=== PATIENT | female | born 1950 | race Caucasian/White ===

== ENCOUNTER → 2018-09-18 | Outpatient (REF) | payer MEDICARE, OTHER ==
[~2018-09-18] MED LIST: BUSPIRONE5 MG PO; HYDROCHLOROT25 MG PO; LEVOTHYROXIN100 MC1 PO; MELOXICAM15 MG PO; OMEPRAZOLE20 MG PO; PROAIR HFA IN; VITAMIN D35000 UNIT PO; [UNRECOGNIZED DRUG - OTHER] PO; [UNRECOGNIZED DRUG - OTHER] PO
[2018-09-18 15:44] LABS: URINE BILIRUBIN - DIPSTICK NEGATIVE (NEGATIVE); URINE BLOOD DIPSTICK NEGATIVE (NEGATIVE); URINE COLOR YELLOW; URINE GLUCOSE - DIPSTICK NEGATIVE (NEGATIVE); URINE KETONE NEGATIVE (NEGATIVE); URINE NITRITE - DIPSTICK NEGATIVE (Negative); URINE PH 6.5 (4.5-8.0); URINE PROTEIN - DIPSTICK NEGATIVE (NEG-TRACE); URINE SPECIFIC GRAVITY <=1.005; URINE UROBILINOGEN - DIPSTICK 0.2 E.U./dL (0.2)
[2018-09-18 16:07] LABS: URINE LEUK ESTERASE MODERATE (NEGATIVE)
[2018-09-18 16:21] LABS: URINE SQUAMOUS EPITHELIAL CELL FEW EPI/hpf (0-FEW)
== END | disposition home or self-care (01) ==
LOC: LAB 15:33
PROVIDERS: ATTEND Nurse Practitioner Family
DX: M54.5 Low back pain (principal); R82.90 Unspecified abnormal findings in urine

== ENCOUNTER 2018-10-31 05:50 | Day surgery (SDC) | payer MEDICARE, OTHER ==
[2018-10-31 08:09] VITALS: BP 158/87
== END 2018-10-31 09:00 | disposition home or self-care (01) ==
LOC: ENDO 05:50
PROVIDERS: ATTEND Surgery
PROC: 0DBN8ZX Excision of Sigmoid Colon, Via Natural or Artificial Opening Endoscopic, Diagnostic (ICD-10-PCS; principal; 2018-10-31)
DX: Z12.11 Encounter for screening for malignant neoplasm of colon (principal); K57.30 Diverticulosis of large intestine without perforation or abscess without bleeding; K63.5 Polyp of colon; K64.4 Residual hemorrhoidal skin tags

== ENCOUNTER 2019-02-24 16:08 | Emergency (ER) | payer MEDICARE, OTHER ==
[~2019-02-24] VITALS: Ht 160 cm; Wt 90.0 kg
[2019-02-24 16:57] LABS: HEMOGLOBIN 14.8 g/dl (12.0-16.0); IMMATURE GRANULOCYTES 0.4 % (0.0-5.0); MEAN CELL VOLUME 95.7 fL CALC (80.0-100.0); MEAN CORPUSCULAR HGB 31.5 pG CALC (26.0-32.0); MEAN CORPUSCULAR HGB CONC 32.9 g/L CALC (32.0-36.0); NEUT# 7.83 thou/uL (2.00-7.15); RED BLOOD COUNT 4.7 mill/uL (4.20-5.60)
[2019-02-24 17:24] LABS: ALBUMIN 4.5 g/dL (3.2-5.0); ALKALINE PHOSPHATASE 69 u/l (38-126); ANION GAP 11 (6-22 (CALC)); BILIRUBIN, TOTAL 0.7 mg/dL (0.0-1.4); BUN 10 mg/dL (8-23); BUN/CREATININE RATIO 14 (12-20 (CALC)); CARBON DIOXIDE 32 mmol/l (22-30); CHLORIDE 101 mmol/l (95-108); CREATININE 0.7 mg/dL (0.5-1.0); GFR > 60 ML/MIN (>=60 (CALC)); GFR FOR AFR.AMER. > 60 ML/MIN (>=60 (CALC)); LIPASE 42 u/l (23-300); SGOT/AST 25 u/l (9-36); SODIUM 140 mmol/l (137-146); TOTAL PROTEIN 7.6 g/dL (6.3-8.2)
[2019-02-24 17:35] LABS: URINE BILIRUBIN - DIPSTICK NEGATIVE (NEGATIVE); URINE BLOOD DIPSTICK NEGATIVE (NEGATIVE); URINE COLOR YELLOW; URINE GLUCOSE - DIPSTICK NEGATIVE (NEGATIVE); URINE KETONE NEGATIVE (NEGATIVE); URINE LEUK ESTERASE NEGATIVE (NEGATIVE); URINE NITRITE - DIPSTICK NEGATIVE (Negative); URINE PROTEIN - DIPSTICK NEGATIVE (NEG-TRACE); URINE SPECIFIC GRAVITY 1.015; URINE UROBILINOGEN - DIPSTICK 0.2 E.U./dL (0.2)
[2019-02-24] MEDS ORDERED: CIPROFLOXACN500 MG PO (18:28)
[2019-02-24] MEDS ORDERED: METRONIDAZOL500 MG PO (18:28)
[2019-02-24] MEDS ORDERED: LORTAB 7.57.5 MG PO (18:28)
[2019-02-24 20:28] VITALS: BP 128/72
== END 2019-02-24 20:26 | disposition home or self-care (01) ==
LOC: ED 16:08
DX: K57.32 Diverticulitis of large intestine without perforation or abscess without bleeding (principal); I10 Essential (primary) hypertension; E03.9 Hypothyroidism, unspecified
CPT/HCPCS: Q9967

== ENCOUNTER 2019-02-27 11:27 | Inpatient (IN) | payer MEDICARE, OTHER ==
[~2019-02-27] VITALS: Ht 160 cm; Wt 91.0 kg
[~2019-02-27 11:27] MED LIST changes: +BENICAR20 MG PO; +CIPROFLOXACN500 MG PO; +LORTAB 7.57.5 MG PO; +METRONIDAZOL500 MG PO; -[UNRECOGNIZED DRUG - OTHER] PO
[2019-02-27 11:35] VITALS: BP 95/61
--- NOTE | 2019-02-27 11:35 | NUR ---
PT DIRECT ADMITTED FRO DR. BURLESON'S OFFICE VIA FOR DIVERTICULITIS. PT TRANSFERRED SELF TO STANDING SCALE, WT 91KG, THEN TO BED. STEADY GAIT NOTED. ESCORTED BY SPOUSE. PT AFEBRILE. T-98.8, B/P 94/61, HR- 64, SA02@96%RA. PT A&OX4, ABLE TO MAKE NEEDS KNOWN. ASSESSMENT COMPLETED. PT STATED PAIN WITH MOVEMENT "7" ON 1-10 SCALE, JUST SITTING, PAIN "0" ON 1-10 SCALE. PT RESTING IN BED, CALL LIGHT IN REACH. WILL MONITOR.
--- NOTE | 2019-02-27 11:50 | NUR ---
LAB AT BEDSIDE FOR BLOOD DRAW.
[2019-02-27 11:55] LABS: IMMATURE GRANULOCYTES 0.6 % (0.0-5.0); MEAN CORPUSCULAR HGB 31.6 pG CALC (26.0-32.0); MEAN CORPUSCULAR HGB CONC 32.9 g/L CALC (32.0-36.0); NEUT# 8.37 thou/uL (2.00-7.15); RED BLOOD COUNT 3.99 mill/uL (4.20-5.60)
[2019-02-27 11:58] LABS: HEMATOCRIT 38.3 % (37.0-47.0); HEMOGLOBIN 12.6 g/dl (12.0-16.0)
--- NOTE | 2019-02-27 12:00 | NUR ---
I LEFT A BRIEF MESSAGE WITH ALFRED HUFF AT [facility]801 TO CALL ME BACK VERIFYING THE CONSULTATION ORDERED. I CALLED AT 12:00PM.
[2019-02-27 12:15] LABS: CREATININE 1.1 mg/dL (0.5-1.0); POTASSIUM 3.8 mmol/l (3.5-5.1)
--- NOTE | 2019-02-27 12:19 | NUR ---
PLACED #22 IN RH WITH 3 ATTEMPTS PT TOLERATED WELL
--- NOTE | 2019-02-27 12:47 | NUR ---
DR. FELTON AT BEDSIDE FOR ASSESSMENT AND TO DISCUSS PLAN OF CARE. PT REMAIN NPO WITH ICE CHIPS ONLY FOR BOWEL REST.
--- NOTE | 2019-02-27 13:00 | NUR ---
PT OFF UNIT FOR CT OF ABDOMEN.
[2019-02-27 13:01] LABS: URINE BILIRUBIN - DIPSTICK NEGATIVE (NEGATIVE); URINE BLOOD DIPSTICK NEGATIVE (NEGATIVE); URINE COLOR YELLOW; URINE GLUCOSE - DIPSTICK NEGATIVE (NEGATIVE); URINE KETONE NEGATIVE (NEGATIVE); URINE LEUK ESTERASE SMALL (NEGATIVE); URINE NITRITE - DIPSTICK NEGATIVE (Negative); URINE PH 6.5 (4.5-8.0); URINE PROTEIN - DIPSTICK NEGATIVE (NEG-TRACE); URINE SPECIFIC GRAVITY <=1.005; URINE UROBILINOGEN - DIPSTICK 0.2 E.U./dL (0.2)
[2019-02-27 13:09] LABS: URINE BACTERIA FEW hpf; URINE SQUAMOUS EPITHELIAL CELL FEW EPI/hpf (0-FEW)
--- NOTE | 2019-02-27 13:30 | NUR ---
PT BACK TO ROOM.
[2019-02-27 16:00] VITALS: BP 87/56
--- NOTE | 2019-02-27 16:04 | NUR ---
BESSIE PABON AT BEDSIDE. PT REPORTS PAIN "5" ON 1-10 SCALE. MEDICATED ORDERED, PER REQUEST. CALL LIGHT IN REACH. WILL MONITOR.
--- NOTE | 2019-02-27 19:02 | NUR ---
REPORT FROM DEEDEE THOMSON. PT SITTING UP IN BED WATCHING TV. ALERT AND ORIENTED. NO APPARENT DISTRESS NOTED. PT DENIES ANY PAIN OR DISCOMFORT. PT CONTINUE WITH NPO FOR BOWEL REST. ICE CHIPS PROVIDED. IV ABT INFUSING WITHOUT DIFFICULTY. IV SITE APPEARS HEALTHY. SCREW MACHINE TENDER IN PLACE. DISCUSSED POC. PT VERBALIZED UNDERSTANDING. CALL LIGHT WITHIN REACH. WILL CONTINUE TO MONITOR.
[2019-02-27 19:29] VITALS: BP 94/59
--- NOTE | 2019-02-27 20:32 | NUR ---
PT MEDICATED FOR ABD PAIN 7-10 WITH PRN LORTAB. PT DENIES ANY OTHER WANTS OR NEEDS AT THIS TIME. CALL LIGHT WITHIN REACH. WILL CONTINUE TO MONITOR.
--- NOTE | 2019-02-27 23:15 | NUR ---
PT ASSISTED TO BSC. PT CRYING IN PAIN. MEDICATED WITH PRN IV MORPHINE AT THIS TIME. ASSISTED BACK TO BED. CALL LIGHT WITHIN REACH. WILL CONTINUE TO MONITOR.
[2019-02-28] VITALS (7 sets, daily range): BP systolic 84–110; BP diastolic 53–67
--- NOTE | 2019-02-28 03:26 | NUR ---
PT MEDICATED WITH PO APAP FOR TEMP. CALL LIGHT WITHIN REACH. WILL CONTINUE TO MONITOR.
[2019-02-28 05:14] LABS: HEMATOCRIT 39.3 % (37.0-47.0); HEMOGLOBIN 13.1 g/dl (12.0-16.0); IMMATURE GRANULOCYTES 0.3 % (0.0-5.0); MEAN CELL VOLUME 95.2 fL CALC (80.0-100.0); MEAN CORPUSCULAR HGB 31.7 pG CALC (26.0-32.0); MEAN CORPUSCULAR HGB CONC 33.3 g/L CALC (32.0-36.0); NEUT# 5.89 thou/uL (2.00-7.15); RED BLOOD COUNT 4.13 mill/uL (4.20-5.60); RED CELL DISTRI WIDTH 12.9 % (11.5-15.5)
[2019-02-28 05:41] LABS: ALKALINE PHOSPHATASE 88 u/l (38-126); ANION GAP 13 (6-22 (CALC)); BUN 11 mg/dL (8-23); BUN/CREATININE RATIO 14 (12-20 (CALC)); CARBON DIOXIDE 28 mmol/l (22-30); CHLORIDE 100 mmol/l (95-108); CREATININE 0.8 mg/dL (0.5-1.0); GFR > 60 ML/MIN (>=60 (CALC)); GFR FOR AFR.AMER. > 60 ML/MIN (>=60 (CALC)); POTASSIUM 3.4 mmol/l (3.5-5.1); SGOT/AST 34 u/l (9-36); SODIUM 137 mmol/l (137-146)
[2019-02-28 05:43] LABS: ALBUMIN 3.4 g/dL (3.2-5.0); BILIRUBIN, TOTAL 1.2 mg/dL (0.0-1.4)
--- NOTE | 2019-02-28 07:32 | NUR ---
REPORT RECEIVED FROM ALFRED VALERA. PT SITTING UPRIGHT IN BED. REPORTS RELIEF OF PAIN FROM RECENT MEDICATION. PLAN OF CARE DISCUSSED. REPORTING OF CONCERNS ENCOURAGED. CALL LIGHT REVIEWED AND IN REACH. NPO DIET REVIEWED. PT STATES UNDERSTANDING.
--- NOTE | 2019-02-28 11:37 | NUR ---
DR. CHAVEZ IN TO SEE PT. PLAN OF CARE UPDATED.
--- NOTE | 2019-02-28 15:15 | NUR ---
TEMP 101.2. TYLENOL PO ADMINISTERED. DR. CHAVEZ NOTIFIED. ORDER FOR BLOOD CX'S.
[2019-02-28] MEDS ORDERED: TIZANIDINE HCL2 M1 PO (16:02)
--- NOTE | 2019-02-28 19:00 | NUR ---
RECIEVED REPORT FROM DAY NURSE. PT RESTING IN BED WITH EYES CLOSED. WAKES TO VERBAL STIMULI. NO NEEDS A THIS TIME. CALL [place] IN REACH. WILL CONTINUE TO MONITOR.
--- NOTE | 2019-02-28 20:52 | NUR ---
PT IN BED WITH EYES CLOSED. PT HAS EAR PLUGS IN WAKES TO LOUD VERBAL STIMULI. ASSESMENT COMPLETED AT THIS TIME. PT C/O PAIN 5/10 TO LOWER ABD. MEDICATED PER ORDER. PT WISHES NOT TO BE DISTURBED TOO MUCH WILL HAVE AR PLUGS IN ALL NIGHT.CALL [place] IN REACH. WILL CONTINUE TO MONITOR.
--- NOTE | 2019-03-01 | NUR ---
PT RESTING IN BED WITH EYES CLOSED. NO S/S OF DISTRESS NOTED. CALL [place] IN REACH. WILL CONTINUE TO MONITOR.
[2019-03-01 00:05] VITALS: BP 97/55
--- NOTE | 2019-03-01 04:09 | NUR ---
MEDICATED PER ORDER FOR PAIN IN ABD 10/24. NO OTHER NEED AT THIS TIME CALL [place] IN REACH. WILL CONTINUE TO MONITOR.
[2019-03-01 04:59] VITALS: BP 105/69
[2019-03-01 05:56] LABS: HEMATOCRIT 37.9 % (37.0-47.0); MEAN CELL VOLUME 98.4 fL CALC (80.0-100.0); MEAN CORPUSCULAR HGB 31.2 pG CALC (26.0-32.0); MEAN CORPUSCULAR HGB CONC 31.7 g/L CALC (32.0-36.0); RED BLOOD COUNT 3.85 mill/uL (4.20-5.60); RED CELL DISTRI WIDTH 13.2 % (11.5-15.5)
--- NOTE | 2019-03-01 06:05 | NUR ---
ORAL CONTRAST STARTED PER ORDER
[2019-03-01 06:13] LABS: ANION GAP 13 (6-22 (CALC)); BUN 11 mg/dL (8-23); BUN/CREATININE RATIO 15 (12-20 (CALC)); CARBON DIOXIDE 27 mmol/l (22-30); CHLORIDE 104 mmol/l (95-108); CREATININE 0.7 mg/dL (0.5-1.0); GFR > 60 ML/MIN (>=60 (CALC)); GFR FOR AFR.AMER. > 60 ML/MIN (>=60 (CALC)); POTASSIUM 3.7 mmol/l (3.5-5.1); SODIUM 140 mmol/l (137-146)
[2019-03-01 08:20] VITALS: BP 113/64
--- NOTE | 2019-03-01 08:20 | NUR ---
ASSESSMENT IS COMPLTED: IV SITE IS FREE FROM REDNESS OR EDMEA. HR IS REG,PULSES ARE STRONG X4, ABD IS SOFT/BLOATED WITH ACTIVE BS. BREATH SOUNDS ARE CLEAR, BILATERALLY, CONTINUE TO OBSERVE AND MONITOR.
--- NOTE | 2019-03-01 09:00 | NUR ---
PT TRANSPORTED TO HAVE CT SCAN COMPLETED: RETURNED AT 0915. C/O IV SITE BURNING WHEN FLUSHED,
--- NOTE | 2019-03-01 10:00 | NUR ---
IV IN RH REMOVED AND NEW ONE PLACED IN RAC WITH #20 FROM CORIN THOMSON. PT TOLERATED WELL.
[2019-03-01 11:07] VITALS: BP 129/75
--- NOTE | 2019-03-01 11:52 | NUR ---
TRANSPORTING PT VIA STRETCHER WITH STAFF TO HAVE A CT ASPIRATION BX
--- NOTE | 2019-03-01 12:30 | NUR ---
PT IS RELAXING IN BED VISITING WITH FAMILY NO DISTRESS NOTED.
--- NOTE | 2019-03-01 12:45 | NUR ---
PT RETURNED WITH A MARICRUZ DRAIN ON HER LEFT SIDE., DRAINING SERO /BLOOD DRAINAGE. DR. FELTON AND JONAH RADIOLOGIST. IN TO VISIT WITH PT EXPLAINED THE PROBLEM AND PROCEDURE. VERBALIZED UNDERSTANDING
[2019-03-01 15:24] VITALS: BP 113/72
--- NOTE | 2019-03-01 16:20 | NUR ---
PT IS RELAXING IN BED WITH NO DISTRESS NOTED. IV SITE IS FREE FROM REDNESS OR EDEMA. CONTINUE TO OSBERVE AND MONITOR.
--- NOTE | 2019-03-01 18:19 | NUR ---
PT'S DRAIN ON LEFT SIDE INTACT HAS SOME BLOODY DRAINAGE NOTED.
--- NOTE | 2019-03-01 20:26 | NUR ---
PT MEDICATED FOR PAIN 5/10 IN LLQ OF ABD. DRAIN IS DRAINING TO BULB SUCTION/DRESSING APPEARS CDI. PT LOCX3, REPORTS MULTIPLE STOOL THIS DAY. NO S/O DISTRESS NOTED AT THIS TIME. CALL LIGHT IS ON TABLE W/IN REACH. CALL LIGHT AT SIDE.
[2019-03-01 20:46] VITALS: BP 105/72
--- NOTE | 2019-03-01 23:41 | NUR ---
IV ANTIBIOITIC THERAPY ADMINISTERED AND IVF REPLENISHED AT THIS TIME. JPDRAIN PATENT AND EMPTIED OF 35CC OF DARK BROWN DRAINAGE/SUCTION TO BULB RESET. PT ASSISTED TO BSC, PT REPORTS NEEDING TO SIT FOR AWHILE/CALL LIGHT PLACED W/IN REACH AND PT INSTRUCTED TO CALL WHEN READY TO GET UP.
[2019-03-02 00:25] VITALS: BP 143/87
--- NOTE | 2019-03-02 01:01 | NUR ---
PT MEDICATED FOR PAIN REPORTED 4/10 ON PAIN SCALE. JPDRAIN DRAINING TO BULB SUCTION. DRESSING TO LLA CDI. DENIES ANY OTHER NEEDS AT THIS TIME.
[2019-03-02 04:30] VITALS: BP 144/83
--- NOTE | 2019-03-02 04:30 | NUR ---
PT V/S ASSESSED, PT REQUESTING TO GET UP AND GET CLEANED UP, AIDE IN W/PT AT THIS TIME. NO S/O DISTRESS NOW.
[2019-03-02 04:57] LABS: HEMATOCRIT 41.1 % (37.0-47.0); HEMOGLOBIN 13.1 g/dl (12.0-16.0); MEAN CELL VOLUME 99.3 fL CALC (80.0-100.0); MEAN CORPUSCULAR HGB 31.6 pG CALC (26.0-32.0); MEAN CORPUSCULAR HGB CONC 31.9 g/L CALC (32.0-36.0); RED BLOOD COUNT 4.14 mill/uL (4.20-5.60); RED CELL DISTRI WIDTH 13.3 % (11.5-15.5)
[2019-03-02 05:19] LABS: ANION GAP 12 (6-22 (CALC)); BUN 7 mg/dL (8-23); BUN/CREATININE RATIO 9 (12-20 (CALC)); CARBON DIOXIDE 29 mmol/l (22-30); CHLORIDE 104 mmol/l (95-108); CREATININE 0.7 mg/dL (0.5-1.0); GFR > 60 ML/MIN (>=60 (CALC)); GFR FOR AFR.AMER. > 60 ML/MIN (>=60 (CALC)); POTASSIUM 3.7 mmol/l (3.5-5.1); SODIUM 142 mmol/l (137-146)
--- NOTE | 2019-03-02 05:49 | NUR ---
PT MEDICATED FOR PAIN 4/10 ON PAIN SCALE. DAVOL SUCTION BULB EMPTIED OF 30CC OF DARK BROWN DRAINAGE AND SET BACK TO BULB SUCTION. PT REPORTS WANTING MORE SLEEP, DENIES ANY OTHER NEEDS AT THIS TIME. CALL LIGHT IS AT SIDE.
[2019-03-02 08:00] VITALS: BP 121/61
--- NOTE | 2019-03-02 08:00 | NUR ---
ASSESSMENT IS COMPLTED: IV SITE IS FREE FROM REDNESS OR EDMEA. HR IS REG,PULSES ARE STRONG X4, ABD IS DISTENDED BUT SOFT, WITH ACTIVE BS. BREATH SOUNDS ARE CLEAR BILATERALLY. PT HAS A MARICRUZ DRAIN IN HER LEFT LOWER ABD DRAINAGE IS CRANBERRY COLORED FLUID. TELE MONITOR IN PLACE. CONTINUE TO OBSERVE AND MONITOR,
[2019-03-02 11:15] VITALS: BP 103/65
--- NOTE | 2019-03-02 12:30 | NUR ---
PT IS RELAXING IN BED , VISITED WITH DR CHAVEZ AND INQUIRED ABOUT WALKING ., WILL CHECK WITH DR. FELTON. CONTINUE TO OBSERVE AND MONITOR.
--- NOTE | 2019-03-02 13:04 | NUR ---
SPOKE WITH DR. FELTON RE: AMBULATION WITH SPOUSE AND LOVENOX., WAS APPROVED .
[2019-03-02 15:10] VITALS: BP 135/80
--- NOTE | 2019-03-02 16:15 | NUR ---
PT IS RELAXING IN BED WITH NO DISTRESS NOTED. IV SITE IS FREE FROM REDNESS OR EDEMA. IN TO VISIT WITH PT.
--- NOTE | 2019-03-02 18:27 | NUR ---
PT IS A LITTLE NAUSEOUS. GAVE MEDICATION
--- NOTE | 2019-03-02 19:15 | NUR ---
REPORT RECEIVED FROM DAY NURSE. DAY NURSE REPORTS THAT IVF HAVE BEEN DC'D BY PHYSICIAN AND IV SITE IS LEAKING/PT REPORTS BURNING AT SITE ALSO. WILL ATTEMPT NEW IV ACCESS AND ASSESS PT. PT DENIES ANY OTHER NEEDS AT THIS TIME AND HAS BEEN MEDIATED FOR PAIN PRIOR TO MY COMING ON.
[2019-03-02 20:05] VITALS: BP 126/63
--- NOTE | 2019-03-02 20:06 | NUR ---
PT MEDICATED FOR ANXIETY/ASKED TO BE MEDICATED PRIOR TO IV ACCESSED.
--- NOTE | 2019-03-02 20:50 | NUR ---
NEW IV SITE ACCESSED, PT TOLERATED WELL. PT ASSISTED TO RESTROOM. PT INSTRUCTED TO CALL WHEN FINISHED.
--- NOTE | 2019-03-03 00:19 | NUR ---
PT MEDICATED W/IV ANTIBIOTIC THERAPY. PT WAS SLEEPING SOUNDLY AND DENIES ANY NEEDS AT THIS TIME. AIDE IN W/ PT OBTAINING V/S
[2019-03-03 00:31] VITALS: BP 121/67
[2019-03-03 04:45] VITALS: BP 116/64
--- NOTE | 2019-03-03 04:45 | NUR ---
PT AWAKE UPON MY ENTERING ROOM. PT HAD BEEN UP TO RESTROOM/HAT EMPTIED OF 200CC OF CLEAR YELLOW URINE AND TOILET FLUSHED OF MOD AMOUNT OF LARGE LOOSE DARK BROWN STOOL. PT REQUESTING PAIN MED/WILL MEDICATE WHEN AVAILABLE. REPORTING PAIN LEVEL 3-4 ON PAIN SCALE.
--- NOTE | 2019-03-03 06:06 | NUR ---
PT MEDICATED FOR PAIN 4/10 ON PAIN SCALE. ASSISTED TO BSC, CALL LIGHT PLACED NEXT TO PT AND PT ENCOURAGED TO CALL WHEN FINISHED FOR ASSISTANCE GETTING BACK INTO BED. MARICRUZ DRAIN TO BULB SUCTION W/SMALL AMOUNT OF DARK FLUID IN BULB.
--- NOTE | 2019-03-03 06:28 | NUR ---
PT ASSISTED BACK TO BED, BSC EMPTIED OF 300CC OF RUNNY DARK BROWN STOOL.
[2019-03-03 08:20] VITALS: BP 119/70
--- NOTE | 2019-03-03 08:20 | NUR ---
ASSESSMENT IS COMPLETED: IV SITE IS FREE FROM REDNESS OR EDEMA. HR IS REG,PULSES ARE STRONG X4, ABD IS SOFT WITH ACTIVE BS. BREATH SOUNDS ARE CLEAR, BILATERALLY. DRAIN ON LOWER LEFT ABD IS DRAINING MINIMAL AMOUNT OF DRAINAGE NOTED. STILL HAS PAIN WHEN THE SUCTIONING BEGINS. TELE MONITOR IN PLACE. PT HAS SOME WEEPING AT TIMES THEN LAUGHS. PT IS NERVOUS RE: OUT COME TOMORROW WITH CT SCAN.
[2019-03-03 10:40] VITALS: BP 101/63
--- NOTE | 2019-03-03 12:16 | NUR ---
PT IS VOIDING AND HAVING LOOSE STOOLS CONTINUE TO AMBULATE IN THE ROOM TO THE BATHROOM. IV SITE IS FREE FROM REDNESS OR EDEMA.
--- NOTE | 2019-03-03 12:30 | NUR ---
PT IS RELAXING IN BED WITH NO DISTRESS NOTED. IV SITE IS FREE FROM REDNESS OR EDEMA.
[2019-03-03 16:08] VITALS: BP 123/74
--- NOTE | 2019-03-03 16:30 | NUR ---
PT HAS BEEN RESTING IN BED WITH NO DISTRESS NOTED. IV SITE IS FREE FROM RDNESS OR EDMEA.
--- NOTE | 2019-03-03 19:00 | NUR ---
PTS SPOUSE CAME TO REPORT THAT PT HAD PULLED HER BULB FROM TUBING/UPON CHECKING PT HAD RECONNECTED BULB/WILL CONTINUE TO MONITOR FOR PATENT/DRAINING. PT DENIES ANY OTHER NEEDS AT THIS TIME. CALL LIGHT IN HAND
[2019-03-03 19:20] VITALS: BP 122/78
--- NOTE | 2019-03-03 19:22 | NUR ---
SPOKE WITH DAUGHTER.
[2019-03-04 00:10] VITALS: BP 140/69
[2019-03-04 03:45] VITALS: BP 118/75
--- NOTE | 2019-03-04 03:54 | NUR ---
PT IVF REPLENISHED. PT GETTING UP TO BSC. DENIES ANY OTHER NEEDS AT THIS TIME. PT REPORTS SEVERAL PASTY BROWN STOOL TONIGHT.
[2019-03-04 04:53] LABS: HEMATOCRIT 37.4 % (37.0-47.0); MEAN CELL VOLUME 97.4 fL CALC (80.0-100.0); MEAN CORPUSCULAR HGB 31.3 pG CALC (26.0-32.0); MEAN CORPUSCULAR HGB CONC 32.1 g/L CALC (32.0-36.0); RED BLOOD COUNT 3.84 mill/uL (4.20-5.60); RED CELL DISTRI WIDTH 13.3 % (11.5-15.5)
[2019-03-04 05:12] LABS: ANION GAP 8 (6-22 (CALC)); BUN 5 mg/dL (8-23); BUN/CREATININE RATIO 7 (12-20 (CALC)); CARBON DIOXIDE 31 mmol/l (22-30); CHLORIDE 105 mmol/l (95-108); CREATININE 0.7 mg/dL (0.5-1.0); GFR > 60 ML/MIN (>=60 (CALC)); GFR FOR AFR.AMER. > 60 ML/MIN (>=60 (CALC)); POTASSIUM 3.6 mmol/l (3.5-5.1); SODIUM 141 mmol/l (137-146)
--- NOTE | 2019-03-04 05:59 | NUR ---
PT MEDICATED W/IV ANTIBIOITIC THERAPY AT THIS TIME. AND BSC EMPTIED OF MOD BROWN PASTY STOOL MIXED W/URINE.
--- NOTE | 2019-03-04 07:31 | NUR ---
REORDERED THE CT SCAN FOR THIS AM.
[2019-03-04 07:40] VITALS: BP 127/65
--- NOTE | 2019-03-04 07:40 | NUR ---
ASSESSMENT IS COMPLETED: IV SITE IS FREE FROM REDNESS OR EDEMA. HR IS REG,PULSES ARE STRONG X4, ABD IS SOFT/DISTENDED WITH ACTIVE BS. BREATH SOUNDS ARE CLEAR BILATERALLY.
--- NOTE | 2019-03-04 09:40 | NUR ---
IN TO VISIT WITH PT. WILL WAIT FOR CT RESULTS.
[2019-03-04 11:40] VITALS: BP 129/64
--- NOTE | 2019-03-04 12:00 | NUR ---
PT IS RELAXING IN BED , HAS HAD MANY LOOSE STOOLS FROM CONTRAST. IV SITE IS FREE FROM REDNESS OR EDEMA. CONTINUE TO OBSERVE AND MONITOR.
--- NOTE | 2019-03-04 12:30 | NUR ---
PT TRANSPORTED TO HAVE CT SCAN COMPLETED VIA WC
[2019-03-04 15:00] VITALS: BP 130/78
--- NOTE | 2019-03-04 16:00 | NUR ---
PT IS RELAXING IN BED , C/O PAIN IN THE LOWER ABD AREA/ MANY LOOSE STOOLS.
[2019-03-04 19:08] VITALS: BP 133/76
--- NOTE | 2019-03-04 20:15 | NUR ---
PT IS SLEEPING, NO S/O DISTRESS AT THIS TIME. SHE DID NOT AWAKE TO MY ENTERING ROOM SO I ALLOWED HER TO REST. ROOM IS QUIET,DARK, TV OFF. IVF RUNNING @KVO, MARICRUZ DRAIN HAS GOOD BULB SUCTION W/TRACE AMOUNT OF BROWN FLUID IN BULB. WILL CONITNUE TO MONITOR. CALL LIGHT AT SIDE.
--- NOTE | 2019-03-05 00:04 | NUR ---
PT MEDICATED W/IV ANTIBIOTIC THERAPY. PT SLEEPING SOUNDLY, NO S/O DISTRESS NOTED. AWOKE TO MY VOICE AND TOUCH, BUT PROMPTLY RETURNED TO SLEEP. MARICRUZ DRAIN TO BULB SUCTION W/MINIMAL OUTPUT.
[2019-03-05 00:49] VITALS: BP 138/88
--- NOTE | 2019-03-05 01:00 | NUR ---
PT MEDICATED FOR PAIN AND ANXIOUSNESS. PT SITTING ON BSC. REPORTS FEELING GASSY, NO STOOL PASSED AT THIS TIME.
[2019-03-05 04:00] VITALS: BP 133/69
[2019-03-05 05:15] LABS: HEMATOCRIT 36.2 % (37.0-47.0); HEMOGLOBIN 11.8 g/dl (12.0-16.0); MEAN CELL VOLUME 96.3 fL CALC (80.0-100.0); MEAN CORPUSCULAR HGB 31.4 pG CALC (26.0-32.0); MEAN CORPUSCULAR HGB CONC 32.6 g/L CALC (32.0-36.0); RED BLOOD COUNT 3.76 mill/uL (4.20-5.60); RED CELL DISTRI WIDTH 13.5 % (11.5-15.5)
[2019-03-05 05:40] LABS: ANION GAP 10 (6-22 (CALC)); BUN 6 mg/dL (8-23); BUN/CREATININE RATIO 8 (12-20 (CALC)); CARBON DIOXIDE 30 mmol/l (22-30); CHLORIDE 106 mmol/l (95-108); CREATININE 0.7 mg/dL (0.5-1.0); GFR > 60 ML/MIN (>=60 (CALC)); GFR FOR AFR.AMER. > 60 ML/MIN (>=60 (CALC)); POTASSIUM 3.7 mmol/l (3.5-5.1); SODIUM 142 mmol/l (137-146)
--- NOTE | 2019-03-05 05:41 | NUR ---
PT MEDICATED ORDERS PROVIDE/IV ANTIBIOTIC THERAPY RUNNING AT THIS TIME. MARICRUZ DRAIN EMPTIED OF 10CC DARK FLUID. PT DENIES ANY OTHER NEEDS.
--- NOTE | 2019-03-05 07:05 | NUR ---
PT REPORT RECIEVED FROM BERTO BERTRAND. PT RESTING. NO S/S OF DISTRESS. CALL LIGHT IN REACH. WILL CONTINUE TO MONITOR.
[2019-03-05 08:03] VITALS: BP 144/77
--- NOTE | 2019-03-05 08:03 | NUR ---
PT A/O X3. SPEECH IS CLEAR. RESP EVEN AND UNLABORED. LUNG SOUNDS CLEAR. TELE IN PLACE. BOWEL SOUNDS ACTIVE X4. PT C/O SHARP ABOMINAL PAIN; 4 OUT OF 10 ON PAIN SCALE. LT SIDED ABDOMINAL TENDERNESS. MEDICATED W/ ONE LORTAB 7.5MG PO REPOSITIONED FOR COMFORT. MARICRUZ DRAIN AND DRESSING TO LLQ; CDI. NO FLUID NOTED IN MARICRUZ DRAIN. PT APPEARS TO BE SLIGHTLY ANXIOUS; MEDICATED W. 0.25MG XANAX PO. VERBAL DISCUSSION APPEARS TO BE DECREASING ANXIETY WELL. STRONG RADIAL/PEDAL PULSES. #22 LH IV REMOVED DUE TO LEAKING. PT REQUESTING TO GET IN SHOWER BEFORE NEW IV START. TRACE OF EDEMA NOTED TO BLE. PT DENIES ANY FURTHER NEEDS. POC DISCUSSED. SAFETY PRECAUTIONS IN PLACE. BSC NEAR BED. CALL LIGHT IN REACH. WILL CONTINUE TO MONITOR.
[2019-03-05 11:00] VITALS: BP 131/61
--- NOTE | 2019-03-05 11:47 | NUR ---
PT WATCHING TELVISON. NO C/O PAIN OR NEEDS. CALL LIGHT IN REACH. WILL CONTINUE TO MONITOR.
--- NOTE | 2019-03-05 16:01 | NUR ---
PT WATCHING TELEVISION. NO C/O PAIN OR NEEDS. CALL LIGHT IN REACH. WILL CONTINUE TO MONITOR.
[2019-03-05 16:05] VITALS: BP 147/84
--- NOTE | 2019-03-05 19:00 | NUR ---
REPORT RECEIVED FROM ALFRED JARVIS. PT RESTING IN BED. NO S/S OF DISTRESS AT THIS TIME. WILL CONTINUE TO MONITOR.
[2019-03-05 19:36] VITALS: BP 144/62
--- NOTE | 2019-03-05 20:22 | NUR ---
PT RESTING IN BED ALERT AND ORIENTED. RESPIRATIONS EVEN AND UNLABORED ON RA. LUNGS SOUND CLEAR. PEDAL PULSES ARE STRONG. PT REPORTS PAIN IN LOWER ABD RATING IT A 4/10 PT MEDICATED PER EMAR ORDERS. MRAICRUZ DRAIN IN PLACE. TELE IN PLACE. CALL [place] WITHIN REACH. WILL CONTINUE TO MONITOR,
[2019-03-06 00:10] VITALS: BP 139/71
--- NOTE | 2019-03-06 00:19 | NUR ---
PT RESTING IN BED, WITH EYES CLOSED. RESPIRATIONS EVEN AND UNLABORED ON RA. NO S/S OF DISTRESS AT THIS TIME. SAFETY PRECAUTIONS IN PLACE. WILL CONTINUE TO MONITOR.
--- NOTE | 2019-03-06 04:06 | NUR ---
PT RESTING IN BED WITH EYES CLOSED. RESPIRATIONS ARE EVEN AND UNLABORED ON RA. NO S/S OF DISTRESS AT THIS TIME. WILL CONTINUE TO MONITOR.
[2019-03-06 08:00] VITALS: BP 133/73
--- NOTE | 2019-03-06 08:00 | NUR ---
ASSESSMENT IS COMPLTED: IV SITE IS FREE FROM REDNESS OR EDEMA. HR IS REG,PULSES ARE STRONG X4, ABD IS SOFT WITH ACTIVE BS. MARICRUZ DRAIN IN PLACE WITH MINIMAL AMOUNT OF DRAINAGE NOTED. TELE MONITOR IN PLACE. CONTINUE TO OBSERVE AND MONITOR.
--- NOTE | 2019-03-06 09:14 | NUR ---
PT IS GOING FOR THE FISTULA GRAM WITH STAFF IN XRAY. IV SITE IS FREE FROM REDNESS OR EDMEA.
[2019-03-06 11:15] VITALS: BP 143/76; BP 152/80
--- NOTE | 2019-03-06 11:35 | NUR ---
PT RETURNED FROM XRAY. AND JONAH FROM RADIOLOGY IN TO VISIT WITH PT. EXPLAINED THE PROCEDURE AND WHAT TO DO WHEN DISCHARGED. WILL ADVANCE DIET TODAY. MAY BE ABLE TO GO HOME TODAY OR TOMORROW.
--- NOTE | 2019-03-06 11:45 | NUR ---
9AM ON MONDAY FOR REPEAT OF FISTULAGRAM, OUT PATIENT.
--- NOTE | 2019-03-06 12:05 | NUR ---
IN TO VISIT WITH PT. WILL LET HER GO HOME TODAY. IV SITE WILL BE DISCONTINUED FAMILY IN THE ROOM.
[2019-03-06] MEDS ORDERED: AMOX/K CLAV875 M1 PO (12:11)
[2019-03-06] MEDS ORDERED: LORTAB 7.57.5 MG PO (12:11)
[2019-03-06] MEDS ORDERED: ALPRAZOLAM0.25 MG PO (12:11)
--- NOTE | 2019-03-06 14:00 | NUR ---
IV SITE DISCONTINEUD CATHETER INTACT NO REDNESS OR EDEMA. FAMILY IN THE ROOM. SENT PRESCRIPTIONS WITH TO GET FILLED. GAVE INSTRUCTIONS AND INFORMATION RE: ABCESS, PERFORATION AND DIVERTICULITIS. CONTINUE TO OBSERVE AND MONITOR.
--- NOTE | 2019-03-06 14:30 | NUR ---
Discharge instructions given. Patient verbalizes understanding of same. Discharged in stable condition via Wheelchair to Home with family. All belongings sent with pt.[facility] WILL SEE PT TOMORROW.
== END 2019-03-06 14:06 | disposition home health service (06) | DRG 392 ==
LOC: MS2 11:27
PROVIDERS: ADMIT Internal Medicine; ATTEND Internal Medicine
PROC: 0W9G30Z Drainage of Peritoneal Cavity with Drainage Device, Percutaneous Approach (ICD-10-PCS; principal; 2019-03-01)
PROC: BW111ZZ Fluoroscopy of Abdomen and Pelvis using Low Osmolar Contrast (ICD-10-PCS; 2019-03-06)
DX: K57.20 Diverticulitis of large intestine with perforation and abscess without bleeding (principal); I10 Essential (primary) hypertension; F41.9 Anxiety disorder, unspecified; E03.9 Hypothyroidism, unspecified; Z86.010 Personal history of colon polyps
CPT/HCPCS: J1650; Q9967; S0164

== ENCOUNTER 2019-03-15 18:43 | Emergency (ER) | payer MEDICARE, OTHER ==
[~2019-03-15] VITALS: Ht 160 cm; Wt 88.0 kg
[~2019-03-15 18:43] MED LIST changes: +ALPRAZOLAM0.25 MG PO; +AMOX/K CLAV875 M1 PO; +TIZANIDINE HCL2 M1 PO
[2019-03-15 20:01] LABS: IMMATURE GRANULOCYTES 0.4 % (0.0-5.0); MEAN CELL VOLUME 95.4 fL CALC (80.0-100.0); MEAN CORPUSCULAR HGB 31.1 pG CALC (26.0-32.0); MEAN CORPUSCULAR HGB CONC 32.6 g/L CALC (32.0-36.0); NEUT# 3.15 thou/uL (2.00-7.15); RED BLOOD COUNT 4.6 mill/uL (4.20-5.60); RED CELL DISTRI WIDTH 13.8 % (11.5-15.5)
[2019-03-15 20:02] LABS: HEMATOCRIT 43.9 % (37.0-47.0); HEMOGLOBIN 14.3 g/dl (12.0-16.0)
[2019-03-15 20:02] LABS: URINE BILIRUBIN - DIPSTICK NEGATIVE (NEGATIVE); URINE BLOOD DIPSTICK NEGATIVE (NEGATIVE); URINE COLOR YELLOW; URINE GLUCOSE - DIPSTICK NEGATIVE (NEGATIVE); URINE KETONE NEGATIVE (NEGATIVE); URINE LEUK ESTERASE NEGATIVE (NEGATIVE); URINE NITRITE - DIPSTICK NEGATIVE (Negative); URINE PH 5.5 (4.5-8.0); URINE PROTEIN - DIPSTICK NEGATIVE (NEG-TRACE); URINE UROBILINOGEN - DIPSTICK 0.2 E.U./dL (0.2)
[2019-03-15 20:15] LABS: ACT PARTIAL THROMBO TIME 26.1 SECONDS (20.0-32.5); PROTHROMBIN TIME 10.2 SECONDS (9.0-12.5)
[2019-03-15 20:20] LABS: ALKALINE PHOSPHATASE 105 u/l (38-126); BILIRUBIN, TOTAL 0.8 mg/dL (0.0-1.4); BUN 12 mg/dL (8-23); BUN/CREATININE RATIO 18 (12-20 (CALC)); CARBON DIOXIDE 27 mmol/l (22-30); CHLORIDE 106 mmol/l (95-108); CREATININE 0.7 mg/dL (0.5-1.0); GFR > 60 ML/MIN (>=60 (CALC)); GFR FOR AFR.AMER. > 60 ML/MIN (>=60 (CALC)); SGOT/AST 31 u/l (9-36); SODIUM 144 mmol/l (137-146)
[2019-03-15 20:21] LABS: ALBUMIN 4.7 g/dL (3.2-5.0); ANION GAP 16 (6-22 (CALC)); POTASSIUM 4.5 mmol/l (3.5-5.1)
[2019-03-15 22:18] VITALS: BP 151/67
== END 2019-03-15 22:18 | disposition home or self-care (01) ==
LOC: ED 18:43
PROVIDERS: Family Medicine
DX: K57.31 Diverticulosis of large intestine without perforation or abscess with bleeding (principal); I10 Essential (primary) hypertension; E03.9 Hypothyroidism, unspecified; Z86.010 Personal history of colon polyps
CPT/HCPCS: Q9967

== ENCOUNTER 2019-04-04 08:51 | Inpatient (IN) | payer MEDICARE, OTHER ==
[~2019-04-04] VITALS: Ht 160 cm; Wt 85.3 kg
[2019-04-04] VITALS (9 sets, daily range): BP systolic 116–152; BP diastolic 68–79
[~2019-04-04 08:51] MED LIST changes: +BENICAR5 MG PO; +ESCITALOPRAM OX10 MG PO; +TRAZODONE50 MG PO
--- NOTE | 2019-04-04 16:35 | NUR ---
PT ARRIVED TO FLOOR @ 1441 BY BED ACCOMPANIED BY OR STAFF X 2. O2 @ 3L VIA NC, SAT 93%. ALERT AND ORIENTED. REPORTED MILD ABDOMINAL PAIN/SORENESS. DILAUDID 0.5 MG IB ADMINISTERED. NPO STATUS EXCEPT ICE CHIPS REVIEWED W/ PT. AT BEDSIDE. SCD'S APPLIED. I.S. REVIEWED. ABDOMINAL BINDER IN PLACE, NO DRAINAGE OBSERVED. # 20 LAC INFUSING LR @ 150 W/O DIFFICULTY. NO REDNESS/SWELLING. HOLLAND CATHETER DRAINING CLEAR YELLOW URINE. PAIN MEDICATIONS AND SCHEDULES REVIEWED. REPORTING OF CONCERNS ENCOURAGED. CALL LIGHT REVIEWED AND IN REACH. FALL PRECAUTIONS REINFORCED. PT STATES UNDERSTANDING OF INFORMATION.
--- NOTE | 2019-04-04 18:03 | NUR ---
PT IN SEMI FOWLERS POSITION. SLEEPING. CALL LIGHT WITHIN REACH.
--- NOTE | 2019-04-04 19:13 | NUR ---
BEDSIDE REPORT RECEIVED FROM DAY NURSE, PT IS IN BED W/LIGHTS OUT AND TV ON. CALL LIGHT IS IN HAND. PT DENIES ANY NEEDS AT THIS TIME, BUT DOES EXPRESS THAT SHE FEELS PRESSURE IN BLADDER AREA "FEEL LIKE I NEED TO PEE." HOLLAND CATHETER ASSESSED AT THIS TIME AND APPEARS PATENT AND TO BE DRAINING CLEAR YELLOW URINE. WILL CONTINUE TO MONITOR CLOSELY AND PT INSTRUCTED TO CALL IF PRESSURE WORSENS OR ANY OTHER NEEDS ARISE.
--- NOTE | 2019-04-05 01:52 | NUR ---
PT MEDICATED ORDERS PROVIDE AND IVF REPLENISHED AT THIS TIME. AWAITING TORODOL TO BE BROUGHT TO MS UNIT BY MECHANICAL FITTER/NOT AVAILABLE ON THE MS UNIT. PT REPORTS HEADACHE AT THIS TIME AND MILD PRESSURE AT CATHETER/BLADDER AREA. ABD BINDER IN PLACE/NO S/O BLEEDING AT THIS TIME.
--- NOTE | 2019-04-05 02:03 | NUR ---
PT MEDICATED FOR PAIN AT THIS TIME. C/O HEADACHE AND PRESSURE TO CATHETER AND BLADDER AREA.
[2019-04-05 04:32] VITALS: BP 112/68
--- NOTE | 2019-04-05 06:06 | NUR ---
bojorquez catheter removed at this time. pt assisted to bsc due to urge to urinate immediately. will conitnue to monitor for pt ability to urinate on her own. pt tolerated removal of bojorquez catheter well and ambulated steady w/standby assistance only for safety measures.
[2019-04-05 08:15] VITALS: BP 114/68
--- NOTE | 2019-04-05 08:15 | NUR ---
ASSESSMENT IS COMPLTED: IV SITE IS FREE FROM REDNESS OR EDEMA. PT C/O EDEMA IN HER HANDS (PREVIOUS ADMISSION WAS ALSO SWOLLEN DUE TO FLUIDS). HR IS REG,PULSES ARE STRONG X4, ABD IS SOFT WITH SOME BS. BREATH SOUNDS ARE CLEAR,BILATERALLY. ABD BINDER IN PLACE OVER THE DRESSING IS CDI. PT FEELS THE GAS MOVING AND IT GIVES HER PAIN. CONTINUE TO OSBERVE AND MONITOR.
--- NOTE | 2019-04-05 12:30 | NUR ---
PT IS RELAXING IN BED WITH NO DISTRESS NOTED IV SITE IS FREE FROM REDNESS OR EDEMA.
--- NOTE | 2019-04-05 12:54 | NUR ---
SPOKE WITH RE: PT CAN HAVE FULL LIQUID DIET.
--- NOTE | 2019-04-05 16:30 | NUR ---
PT IS RELAXING WITH NO DISTRESS NOTED IV SITE IS FREE FROM REDNESS OR EDEMA.
--- NOTE | 2019-04-05 19:00 | NUR ---
REPORT RECEIVED FROM ALFRED COX. PT RESTING IN BED. NO S/S OF DISTRESS AT THIS TIME. SAFETY PRECAUTIONS IN PLACE, WILL CONTINUE TO MONITOR.
[2019-04-05 19:15] VITALS: BP 121/47
[2019-04-05 20:48] VITALS: BP 141/71
--- NOTE | 2019-04-05 20:48 | NUR ---
PT RESTING IN BED, ALERT AND ORIENTED. RESPIRATIONS EVEN AND UNLABORED ON RA, LUNGS SOUND CLEAR. PEDAL PULSES ARE STRONG. #20 LAC LR @ 75 ML/HR APPEARS HEALTHY. ABD BINDER IN PLACE. PT REPORTS PAIN OF 4/10 PT MEDICATED PER EMAR ORDERS. SAFETY PRECUATIONS IN PLACE. WILL CONTINUE TO MONITOR.
--- NOTE | 2019-04-06 00:05 | NUR ---
PT ASSISTED TO BSC, PT GATE STEADY, RESPIRATIONS ARE EVEN AND UNLABORED ON RA. CALL [place] WITHIN REACH, PT ENCOURAGED TO CALL FOR ASSISTANCE.
--- NOTE | 2019-04-06 04:00 | NUR ---
ASSITED PT TO BSC, PT GATE STEADY. RESPIRATIONS EVEN AND UNLABORED. NO S/S OF DISTRESS.
[2019-04-06 04:40] VITALS: BP 117/60
[2019-04-06 05:08] LABS: MEAN CELL VOLUME 97.4 fL CALC (80.0-100.0); MEAN CORPUSCULAR HGB 31.2 pG CALC (26.0-32.0); MEAN CORPUSCULAR HGB CONC 32.1 g/L CALC (32.0-36.0); RED BLOOD COUNT 3.49 mill/uL (4.20-5.60); RED CELL DISTRI WIDTH 14.6 % (11.5-15.5)
[2019-04-06 05:12] LABS: HEMOGLOBIN 10.9 g/dl (12.0-16.0)
[2019-04-06 05:29] LABS: ANION GAP 10 (6-22 (CALC)); BUN 8 mg/dL (8-23); BUN/CREATININE RATIO 13 (12-20 (CALC)); CARBON DIOXIDE 29 mmol/l (22-30); CHLORIDE 106 mmol/l (95-108); CREATININE 0.6 mg/dL (0.5-1.0); GFR > 60 ML/MIN (>=60 (CALC)); GFR FOR AFR.AMER. > 60 ML/MIN (>=60 (CALC)); POTASSIUM 3.8 mmol/l (3.5-5.1); SODIUM 141 mmol/l (137-146)
--- NOTE | 2019-04-06 06:50 | NUR ---
PT REPORT RECIEVED FROM BERTO VUONG. PT RESTING. NO S/S OF DISTRESS. CALL LIGHT IN REACH. WILL CONTINUE TO MONITOR.
[2019-04-06 07:53] VITALS: BP 147/80
--- NOTE | 2019-04-06 07:53 | NUR ---
PT A/O X3. RESP EVEN AND UNLABORED. LUNG SOUNDS CLEAR. BOWEL SOUNDS HYPERACTIVE. ABDOMINAL BINDER RELEASED. ABDOMEN DISTENED,SOFT. DRESSING TO MIDLINE OF ABDOMEN W/ SMALL AMOUNT OF DRAINAGE NOTED; INTACT. ONE SMALL DRESSING TO UPPER MID ABDOMEN AND LLQ; CDI. PT C/O SHARP PAIN 3 OUT OF 10 ON PAIN SCALE. PT STATES "IT FEELS LIKE I AM FULL OF GAS". PT VERBALIZES THAT SHE IS PASSING GAS. ENCOURAGED TO AMBULATE AND SIT UP IN CHAIR. PT VERBALIZES UNDERSTANDING. MEDICATED PT W/ SCHEDULED 15 MG TORADOL; ASSISTED TO RESTROOM. STRONG RADIAL AND PEDAL PULSES. #20 LAC LR @75; IV FLUIDS DECREASED DUE TO PT FEELING LIKE HER HANDS WERE SWELLING PER BERTO VUONG. ASSESSED LT HAND. IV SITE HEALTHY, NO LEAKAGE. LT HAND HAS VERY MINIMAL SWELLING. PT DENIES ANY PAIN TO LT HAND. NO FURTHER NEEDS VERBALIZED BY PT. POC DISCUSSED. SAFETY PRECAUTIONS IN PLACE. CALL LIGHT IN REACH. INCENTIVE SPIROMTER AT BEDSIDE. SCD ON PT. BSC NEAR BED. CALL LIGHT IN REACH. WILL CONTINUE TO MONITOR.
[2019-04-06] MEDS ORDERED: PERCOCET 5/325M1 TAB PO (10:38)
--- NOTE | 2019-04-06 11:42 | NUR ---
PT ABDOMINAL DRESSING REMOVED PER MD. 1 STAPLE TO UPPER MID ABDOMEN, 1 STAPLE TO LLQ, 25 HUMAIRA TO MIDABDOMINAL INCISION. ALL AREAS APPEAR HEALTHY. MIDABDOMINAL INCISION HAS SCANOT BLOODY DRAINAGE NEAR BOTTOM HUMAIRA. GUAZE AND TEGADERM APPLIED TO UPPER ABDOMEN AND LLQ. ABD PAD AND PAPER TAPE APPLIED TO MIDABDOMINAL INCISION. IV DRESSING CHANGED. ASSISTED PT TO RESTROOM. NO FURTHER NEEDS EXPRESSED. CALL LIGHT IN REACH. WILL CONTINUE TO MONITOR.
[2019-04-06 14:58] VITALS: BP 144/70
--- NOTE | 2019-04-06 16:40 | NUR ---
PT RESTING. NO C/O PAIN OR NEEDS. CALL LIGHT IN REACH. WILL CONTINUE TO MONITOR.
--- NOTE | 2019-04-06 18:55 | NUR ---
REPORT RECIEVED FROM ALFRED JARVIS. PT RESTING IN BED. NO S/S OF DISTRESS AT THIS TIME. SAFETY PRECAUTIONS IN PLACE. WILL CONTINUE TO MONITOR.
[2019-04-06 19:16] VITALS: BP 147/68
--- NOTE | 2019-04-06 20:20 | NUR ---
PT RESTING IN BED. ALERT AND OREIENTED. RESPIRATIONS EVEN AND UNLABORED ON RA. LUNGS SOUND CLEAR. PEDAL PULSES ARE STRONG. PT DENIES ANY PAIN OR DISCOMFORT AT THIS TIME. PT ASKING FOR A "SLEEPING PILL". SAFETY PRECAUTIONS IN PLACE. WILL CONTINUE TO MONITOR.
--- NOTE | 2019-04-06 20:32 | NUR ---
PT MEDICATED WITH BY MISTAKE WITH SONATA 5MG PO, FOR SLEEP. NOTIFIED OF MED ERROR, NO NEW ORDERS OBTAINED AT THIS TIME. PT MADE AWEAR. PT STATES "BUT I THOUGHT I'VE BEEN GETTING A SLEEPING PILL? I USUALLY DO." MEDS REVIEWED WITH PT. SAFETY PRECAUTIONS IN PLACE. WILL CONTINUE TO MONITOR.
--- NOTE | 2019-04-06 22:05 | NUR ---
PT RESTING IN BED. RESPIRATIONS EVEN AND UNLABORED ON RA. NO S/S OF DISTRESS AT THIS TIME. WILL CONTINUE TO MONITOR.
[2019-04-07 00:25] VITALS: BP 133/78
--- NOTE | 2019-04-07 00:32 | NUR ---
PT RESTING IN BED. RESPIRATIONS EVEN AND UNLABORED ON RA. NO S/S OF DISTRESS AT THIS TIME. SAFETY PRECAUTIONS IN PLACE. WILL CONTINUE TO MONITOR.
--- NOTE | 2019-04-07 02:14 | NUR ---
PT RESTING IN BED. NO S/S OF DISTRESS. RESPIRATIONS EVEN AND UNLABORED AT THIS TIME. SAFETY PRECAUTIONS IN PLACE. WILL CONTINUE TO MONITOR.
[2019-04-07 04:50] VITALS: BP 160/78
--- NOTE | 2019-04-07 06:50 | NUR ---
PT REPORT RECIEVED FROM BERTO VUONG. PT SLEEPING. NO S/S OF DISTRESS. CALL LIGHT IN REACH. WILL CONTINUE TO MONITOR.
[2019-04-07 07:32] VITALS: BP 152/79
--- NOTE | 2019-04-07 07:32 | NUR ---
PT A/O X3. RESP EVEN AND UNLABORED. LUNG SOUNDS CLEAR. BOWEL SOUNDS ACTIVE X4. STRONG RADIAL/PEDAL PULSES. #20 LH SL. FLUSHED AND PATENT. SITE APPEARS HEALTHY. DRESSINGS TO ABDOMEN;CDI. ABDOMINAL BINDER IN PLACE. PT DENIES ANY PAIN OR NEEDS. POC DISCUSSED. SAFETY PRECAUTIONS IN PLACE. CALL LIGHT IN REACH. WILL CONTINUE TO MONITOR.
[2019-04-07 07:33] VITALS: BP 152/79
--- NOTE | 2019-04-07 08:00 | NUR ---
DR. FELTON CALLED TO VERIFY IF HE WANTED PT TO GO HOME WITH HOME HEALTH. STATES HE DOES NOT WANT PT TO GO WITH HOME HEALTH THAT WAS A INCORRECT INPUT; PT TO BE DISCHARGE HOME ONLY.
--- NOTE | 2019-04-07 08:32 | NUR ---
D/C INSTRUCTIONS DISCUSSED W/ PT. PT STATES UNDERSTANDING. IV REMOVED; CATHETER INTACT. PT WAITING FOR SPOUSE TO ARRIVE.
--- NOTE | 2019-04-07 10:14 | NUR ---
Discharge instructions given. Patient verbalizes understanding of same. Discharged in stable condition via Wheelchair to Home with family. All belongings sent with pt.
== END 2019-04-07 10:14 | disposition home or self-care (01) | DRG 331 ==
LOC: ORM 08:51 → MS2 14:41
PROVIDERS: ADMIT Surgery; ATTEND Surgery
PROC: 0DBN0ZZ Excision of Sigmoid Colon, Open Approach (ICD-10-PCS; principal; 2019-04-04)
DX: K57.32 Diverticulitis of large intestine without perforation or abscess without bleeding (principal); I10 Essential (primary) hypertension; E78.2 Mixed hyperlipidemia; E03.9 Hypothyroidism, unspecified
CPT/HCPCS: J0131; J1100; J2710

== ENCOUNTER 2021-11-03 09:44 | Emergency (ER) | payer MEDICARE ==
[~2021-11-03] VITALS: Ht 160 cm; Wt 88.6 kg
[~2021-11-03 09:44] MED LIST changes: +PERCOCET 5/325M1 TAB PO
[2021-11-03 10:38] VITALS: BP 162/86
== END 2021-11-03 13:43 | disposition home or self-care (01) ==
LOC: ED 09:44
PROC: 0HQ1XZZ Repair Face Skin, External Approach (ICD-10-PCS; principal; 2021-11-03)
DX: S01.111A Laceration without foreign body of right eyelid and periocular area, initial encounter (principal); S91.201A Unspecified open wound of right great toe with damage to nail, initial encounter; I10 Essential (primary) hypertension; F41.9 Anxiety disorder, unspecified; E03.9 Hypothyroidism, unspecified; K21.9 Gastro-esophageal reflux disease without esophagitis; W01.10XA Fall on same level from slipping, tripping and stumbling with subsequent striking against unspecified object, initial encounter; Y92.002 Bathroom of unspecified non-institutional (private) residence as the place of occurrence of the external cause

== ENCOUNTER 2022-06-13 09:20 | Day surgery (SDC) | payer MEDICARE ==
[~2022-06-13] VITALS: Ht 160 cm; Wt 83.9 kg
[~2022-06-13 09:20] MED LIST changes: +BUPROPN HCL300 MG PO; +COQ1030 MG PO; +LIPITOR20 M1 PO; +SYMBICORT 80-4.5MCG
[2022-06-13 12:39] VITALS: BP 114/91
== END 2022-06-13 13:05 | disposition home or self-care (01) ==
LOC: ENDO 09:20 → ORM 15:40
PROVIDERS: ATTEND Internal Medicine Gastroenterology
PROC: 0DB98ZX Excision of Duodenum, Via Natural or Artificial Opening Endoscopic, Diagnostic (ICD-10-PCS; principal; 2022-06-13)
PROC: 0DB78ZX Excision of Stomach, Pylorus, Via Natural or Artificial Opening Endoscopic, Diagnostic (ICD-10-PCS; 2022-06-13)
PROC: 0DB38ZX Excision of Lower Esophagus, Via Natural or Artificial Opening Endoscopic, Diagnostic (ICD-10-PCS; 2022-06-13)
DX: K21.00 Gastro-esophageal reflux disease with esophagitis, without bleeding (principal); K29.70 Gastritis, unspecified, without bleeding; J45.909 Unspecified asthma, uncomplicated; E03.8 Other specified hypothyroidism; Z79.899 Other long term (current) drug therapy; Z86.010 Personal history of colon polyps

== ENCOUNTER 2022-08-25 08:11 | Day surgery (SDC) | payer MEDICARE ==
[~2022-08-25] VITALS: Ht 157.5 cm; Wt 82.6 kg
[~2022-08-25 08:11] MED LIST changes: +ALBUTEROL SUL0.083 % IN; +EUTHYROX100 MCG; -SYMBICORT 80-4.5MCG; +SYMBICORT 80-4.5MCG IN
[2022-08-25] MEDS ORDERED: PERCOCET 5/321 COMBO PO (11:02)
[2022-08-25 13:28] VITALS: BP 143/77
== END 2022-08-25 13:40 | disposition home or self-care (01) ==
LOC: ORM 08:11
PROVIDERS: ATTEND Surgery
PROC: 0WUF4JZ Supplement Abdominal Wall with Synthetic Substitute, Percutaneous Endoscopic Approach (ICD-10-PCS; principal; 2022-08-25)
DX: K43.0 Incisional hernia with obstruction, without gangrene (principal); K43.2 Incisional hernia without obstruction or gangrene; E66.09 Other obesity due to excess calories; E03.9 Hypothyroidism, unspecified; F41.9 Anxiety disorder, unspecified; J45.909 Unspecified asthma, uncomplicated; Z68.34 Body mass index [BMI] 34.0-34.9, adult
CPT/HCPCS: C1781; J0131; J0690; J1100

== ENCOUNTER 2023-03-08 17:46 | Emergency (ER) | payer OTHER, MEDICARE ==
[~2023-03-08] VITALS: Ht 157.5 cm; Wt 77.0 kg
[~2023-03-08 17:46] MED LIST changes: +PERCOCET 5/321 COMBO PO
[2023-03-08 18:08] VITALS: BP 159/82
[2023-03-08 18:15] VITALS: BP 146/77
[2023-03-08 18:30] VITALS: BP 151/83
[2023-03-08] MEDS ORDERED: METHOCARBAMOL500 MG PO (20:56)
[2023-03-08] MEDS ORDERED: EC-NAPROXEN500 MG PO (20:56)
[2023-03-08 21:09] VITALS: BP 143/83
== END 2023-03-08 21:17 | disposition home or self-care (01) | DRG 552 ==
LOC: ED 17:46
DX: S16.1XXA Strain of muscle, fascia and tendon at neck level, initial encounter (principal); M54.50 Low back pain, unspecified; I10 Essential (primary) hypertension; E03.9 Hypothyroidism, unspecified; V49.40XA Driver injured in collision with unspecified motor vehicles in traffic accident, initial encounter